=== PATIENT | female | born 1985 | race Caucasian/White ===

== ENCOUNTER 2022-05-24 11:28 | Outpatient (CLI) | payer BC, SELFPAY ==
[2022-05-24 13:59] LABS: SARS PCR* Negative SARS-CoV-2 (Negative)
== END 2022-05-24 11:29 | disposition home or self-care (01) ==
LOC: KYNREF 11:28
PROVIDERS: PCP Nurse Practitioner Family; Visit Provider Nurse Practitioner Family
DX: Z20.822 Contact with and (suspected) exposure to COVID-19 (principal); J32.9 Chronic sinusitis, unspecified
CPT/HCPCS: 87635